=== PATIENT | male | born 1990 | race Two or more races ===

== ENCOUNTER 2016-11-16 19:55 | Emergency (ER) | payer SELFPAY ==
[~2016-11-16] VITALS: Ht 167.6 cm; Wt 72.6 kg
[2016-11-16 20:00] VITALS: BP 127/80
[2016-11-16] MEDS ORDERED: Lidocaine 1% 10mg/ml/Epi 0.005mg/ml 30ml vial INJ ONE (20:15)
[2016-11-16] MEDS ORDERED: Bacitracin Oint UD TOPIC ONE (20:15)
--- NOTE | 2016-11-16 21:47 | Emergency Room Report ---
History of Present Illness General Chief Complaint: Laceration Source: Patient Present Illness HPI Patient cut L leg on skateboard 2 hours [employer] [place]. Significant pain 10/10, sharp, not radiate. States tetanus < 10 years. Some bleeding at scene, controlled by tying on bandanna. No numbness. No somatic complaints. Able to ambulate. Allergies: Coded Allergies: No Known Allergies (Unverified , 11/16/16) Patient History Past Medical History: see triage record Social History: Reports: smoking Social History Narrative laborer construction or leak [employer] Reviewed Nursing Documentation: PMH: Agreed, PSxH: Agreed Nursing Documentation-PMH Past Medical History: No Stated History Review of Systems Constitutional: Denies: fever Respiratory: Denies: shortness of breath Cardiovascular: Denies: chest pain Gastrointestinal: Denies: nausea Musculoskeletal: Reports: see HPI Skin: Reports: see HPI Neurological: Reports: see HPI Physical Exam Vital Signs Date Time Temp Pulse Resp B/P (MAP) Pulse Ox O2 Delivery O2 Flow Rate FiO2 11/16/16 19:58 97.7 67 18 127/80 98 Room Air Sp02 EP Interpretation: reviewed, normal General Appearance: well appearing, no apparent distress Head: normocephalic, atraumatic Eyes: bilateral eye PERRL, bilateral eye Scleral Injection ENT: hearing grossly normal, normal voice, moist mucus membranes Neck: full range of motion, supple Respiratory: no respiratory distress, speaking full sentences Cardiovascular #1: normal peripheral pulses Cardiovascular #2: 2+ dorsalis pedis (L) Gastrointestinal: normal inspection, scaphoid Musculoskeletal: digits/nails normal, gait/station normal, normal range of motion, no calf tenderness, other - see skin Neurologic: alert, oriented x3, motor strength/tone normal, sensory intact, normal gait Psychiatric: mood/affect normal Skin: laceration - L thigh to fascia Procedures Laceration/Wound Repair Laceration/Wound Repair : Consent: Verbal Wound Location: lower extremity Wound's Depth, Shape: linear Wound Length (cm): 9 Wound Explored: clean Irrigated w/ Saline (ccs): 1000 Betadine Prep?: Yes Anesthesia: Lidocaine w/ Epi Volume Anesthetic (ccs): 8 Wound Debrided: minimal Wound Repaired With: sutures Suture Size/Type: 5:0 Layer Closure?: Yes Deep Layer Suture Size/Type: 5:0, 4:0, other - vicryl Sterile Dressing Applied?: Yes Splint Applied?: No Sling Applied?: No Patient Tolerated: Well Complications: None Progress After copious irrigation, SQ approximated. Irrigated. Dermis with running suture with occasional inverted mattress. Hari well. Medical Decision Making Diagnostic Impression: Primary Impression: Intermediate left leg laceration repair Additional Impression: Laceration ER Course Patient with L thigh laceration. Needs sutures. No antibiotics indicated at this time. Layered closure. See procedure note. Patient sleeping through most of procedure. Tolerated well. Patient stable for outpatient observation and treatment. Last Vital Signs Date Time Temp Pulse Resp B/P (MAP) Pulse Ox O2 Delivery O2 Flow Rate FiO2 11/16/16 22:21 97.7 62 17 118/75 100 Room Air Status: improved Disposition: HOME, SELF-CARE Condition: Improved Scripts Ibuprofen* (MOTRIN*) 600 Mg Tablet 600 MG ORAL Q6H Y for For Pain, #20 TAB Prov: Pepito Hoffman M.D. 11/16/16 Bacitracin (Bacitracin) 28.4 Gm Oint...g. 1 APPLIC TOPIC BID, #10 GM Prov: Pepito Hoffman M.D. 11/16/16 Pepito Hoffman M.D. Nov 16, 2016 21:47
[2016-11-16] MEDS ORDERED: IBUPROFEN600 MG ORAL (21:48)
[2016-11-16] MEDS ORDERED: BACITRACIN15 GM TOPIC (21:48)
[2016-11-16 22:00] VITALS: BP 119/79
[2016-11-16 22:21] VITALS: BP 118/75
== END 2016-11-16 22:21 | disposition home or self-care (01) ==
LOC: EMR 20:30
DX: S71.112A Laceration without foreign body, left thigh, initial encounter (principal); W45.8XXA Other foreign body or object entering through skin, initial encounter; Y93.9 Activity, unspecified; Y92.9 Unspecified place or not applicable; F17.200 Nicotine dependence, unspecified, uncomplicated
CPT/HCPCS: 64450; 99284